=== PATIENT | male | born 1970 | race Caucasian/White ===

== ENCOUNTER → 2017-04-07 | Outpatient (CLI) | payer BC ==
[~2017-04-07] MED LIST: CORTISONE CREAM
--- NOTE | 2017-04-07 14:11 | MAMMOGRAPHY REPORT ---
MALE BILATERAL DIGITAL DIAGNOSTIC MAMMOGRAM WITH CAD AND TARGETED LEFT ULTRASOUND: 04/07/2017 CLINICAL HISTORY: The patient reports a focal area of tenderness behind his nipple for approximately one month. He has a family history of breast cancer in his mother. He reports significant weight ga in over the last year. TECHNIQUE: Current study was also evaluated with a Computer Aided Detection (CAD) system. Bilateral CC and MLO views were obtained. COMPARISON: No prior exams were available for comparison. BREAST COMPOSITION: The tissue of both breasts is prominently fatty. FINDINGS: A square marker sue the site of pain in the left subareolar breast. There is moderate f ibroglandular tissue seen within the left subareolar breast, consistent with gynecomastia. There are no suspicious masses, calcifications, or areas of architectural distortion noted within either breas t. Targeted ultrasound was performed of the area of the pain pointed out by the patient, in the left sub areolar breast most prominent in the upper inner subareolar breast. Fibroglandular tissue is seen wi thin the left subareolar breast, consistent with gynecomastia. No suspicious masses or other suspici ous sonographic abnormalities are evident. IMPRESSION: ACR BI-RADS CATEGORY 2: BENIGN, TARGETED ULTRASOUND ACR BI-RADS CATEGORY 2: BENIGN Benign gynecomastia in the left subareolar breast, which corresponds with the area of pain pointed ou t by the patient. There is no mammographic or targeted sonographic evidence of malignancy. Recommen d clinical follow-up as to a possible underlying cause. The patient has been verbally notified of the results. Approximately 10% of breast cancers are not detected with mammography. A negative mammographic report should not delay biopsy if a clinically suggestive mass is present. Eva Cash M.D. ah/:04/07/2017 10:24:09 [employer]ental Management Trainee: Yulisa WAGNER(Ba)(M), [facility] letter sent: Normal 1/2 BI-RADS Code: ACR BI-RADS Category 2: Benign Ultrasound BI-RADS: ACR BI-RADS Category 2: Benign
== END | disposition home or self-care (01) ==
LOC: C.MAMM 09:14
PROVIDERS: ATTEND Student in an Organized Health Care Education/Training Program
DX: N64.4 Mastodynia (principal); R92.8 Other abnormal and inconclusive findings on diagnostic imaging of breast